=== PATIENT | male | born 1945 | race Caucasian/White ===

== ENCOUNTER 2019-08-28 21:11 | Emergency (ER) | payer OTHER ==
[2019-08-28 21:18] VITALS: BP 139/81; BMI 25.8
--- NOTE | 2019-08-28 22:10 | PDOC ---
History of Present Illness - General Chief Complaint: Cold Symptoms Stated Complaint: COLD SYMPTOMS Time Seen by Provider: 08/28/19 22:04 History Source: Patient Exam Limitations: No Limitations - History of Present Illness Initial Comments: 08/28/19 22:08 PCP: Darrell Romo HPI: 74yo M PMH HTN, HLD, DM, presenting with subjective fevers, headache, malaise for 1 day. Patient took Nyquil last night and Dayquil this morning with some relief. No chest pain, SOB, nausea, vomiting, diarrhea. Good appetite, no sick contacts. No symptoms in the department. Denies being concerned for COVID. Has not seen his PCP for this. No fever with 8+ hours off his antipyretic. All: NKDA Meds: Per chart PMH: HTN, DM, HLD PSH: Appendectomy SHx: Denies toxic habits Past History - Travel Traveled outside of the country in the last 30 days: No Close contact w/someone who was outside of country & ill: No - Past Medical History Allergies/Adverse Reactions: Allergies Allergy/AdvReac Type Severity Reaction Status Date / Time No Known Allergies Allergy Verified 08/28/19 21:18 COPD: No Diabetes: Yes HTN: Yes - Psycho Social/Smoking Cessation Hx Smoking History: Never smoked Review of Systems - Review of Systems Able to Perform ROS?: Yes Is the patient limited [place] proficient: Yes Constitutional: Yes: Fever. No: Chills, Diaphoresis HEENTM: Yes: Other (rhinorrhea ). No: Nose Congestion, Throat Pain Respiratory: Yes: Cough ("occasionally"). No: Orthopnea, Shortness of Breath, Wheezing, Productive cough, Hemoptysis Cardiac (ROS): No: Chest Pain, Edema, Irregular Heart Rate, Lightheadedness, Palpitations, Syncope, Chest Tightness ABD/GI: No: Constipated, Diarrhea, Nausea, Vomiting : No: Burning, Dysuria, Frequency Musculoskeletal: No: Muscle Pain, Muscle Weakness, Neck Pain Integumentary: No: Bruising, Pallor, Pruritus, Rash Neurological: No: Headache, Numbness, Tingling, Weakness Psychiatric: No: Stressors, Change in Appetite Endocrine: No: Increased Thirst, Increased Urine Hematologic/Lymphatic: No: Anemia, Blood Clots, Easy Bleeding All Other Systems: Reviewed and Negative *Physical Exam - Vital Signs Last Vital Signs Temp Pulse Resp BP Pulse Ox 99.2 F 108 H 19 139/81 98 08/28/19 21:12 08/28/19 21:12 08/28/19 21:12 08/28/19 21:12 08/28/19 21:12 - Physical Exam 08/28/19 23:02 Vitals reviewed, AFVSS, Rectal temp 99.6, mild tachycardia to 108 GEN: Well appearing, appears stated age, NAD, comfortable. AAOx3. HEENT: NCAT, EOMI, PERRL. Sclera anicteric, non-injected. No facial asymmetry. Moist mucous membranes. Throat non-erythematous. Normal voice. Trachea midline. CV: RRR, S1/S2, no murmurs / rubs / gallops appreciated. LUNG: CTAB, normal work of breathing. No wheezes, rales, rhonchi. No cough. Speaking full sentences. GI: Soft, NTND, +BS, no guarding, no rebound. No masses. Neg CVAT b/l. EXTREMITIES: 2+ distal pulses. No LE edema. No obvious deformities of all extremities. SKIN: Warm, dry, no rashes appreciated, non-jaundiced. PSYCH: Normal mood and affect. Cooperative and appropriate. NEURO: CN grossly intact. Moving all extremities well. Normal strength and sensation grossly. Medical Decision Making - Medical Decision Making 08/28/19 22:53 74yo M PMH HTN, HLD, DM, presenting with subjective fevers, headache, malaise for 1 day. Did not screen positive for COVID. Afebrile, minimal coughing at home - none while here. Afebrile while off antipyretics for 8+ hours. DDX: most likely URI. - Tylenol 975 mg - Rectal temp 99.6 08/28/19 23:14 Feeling better after Tylenol. Dispo: Home Discharge - Discharge Information Problems reviewed: Yes Clinical Impression/Diagnosis: URI (upper respiratory infection) Qualifiers: URI type: unspecified URI Qualified Code(s): J06.9 - Acute upper respiratory infection, unspecified Condition: Stable Disposition: HOME - Admission No - Follow up/Referral Referrals: ON STAFF,NOT [Primary Care Provider] - - Patient Discharge Instructions Patient Printed Discharge Instructions: DI for Viral Upper Respiratory Infection -- Adult Additional Instructions: You were seen and evaluated at [place] for fevers and malaise. Please continue to take over the counter medications for your symptoms as well as your home medications. Follow up with your primary care doctor in the next 3-5 days if symptoms persist. Return to the ED if you develop any new or concerning symptoms. These may include but are not limited to: shortness of breath or fever that does respond to medication. - Post Discharge Activity
[2019-08-28] MEDS ORDERED: ACETAMINOPHEN 500 MG TABLET (FP) PO ONE (22:53)
[2019-08-28] MEDS ORDERED: ACETAMINOPHEN 325 MG TABLET (FP) ONE (22:55)
[2019-08-28 23:01] VITALS: TEMP 99.6
[2019-08-28 23:25] VITALS: PULSE 88
--- NOTE | 2019-08-28 23:46 | PDOC ---
Attending Attestation - Resident Resident Name: Marcus Jacinto - ED Attending Attestation I have performed the following: I have examined & evaluated the patient, The case was reviewed & discussed with the resident, I agree w/resident's findings & plan, Exceptions are as noted - HPI HPI: 08/28/19 23:40 See resident HPI - Physicial Exam PE: 08/28/19 23:40 Agree with documented exam - Medical Decision Making 08/28/19 23:49 74M pmh DM, HTN, HLD, with 1 day of subjective fever, YEAGER, sinus congestion, no sob, minimal cough Afebrile, no antipyretics prior to presentation tylenol re-eval well appearing, no complaints dc Discharge - Discharge Information Problems reviewed: Yes Clinical Impression/Diagnosis: URI (upper respiratory infection) Qualifiers: URI type: unspecified URI Qualified Code(s): J06.9 - Acute upper respiratory infection, unspecified Condition: Stable Disposition: HOME - Follow up/Referral Referrals: ON STAFF,NOT [Primary Care Provider] - - Patient Discharge Instructions Patient Printed Discharge Instructions: DI for Viral Upper Respiratory Infection -- Adult Additional Instructions: You were seen and evaluated at [place] for fevers and malaise. Please continue to take over the counter medications for your symptoms as well as your home medications. Follow up with your primary care doctor in the next 3-5 days if symptoms persist. Return to the ED if you develop any new or concerning symptoms. These may include but are not limited to: shortness of breath or fever that does respond to medication. - Post Discharge Activity
== END 2019-08-28 23:25 | disposition home or self-care (01) ==
LOC: JER 21:11 → JERFT 21:11 → JER 23:25
DX: J06.9 Acute upper respiratory infection, unspecified (principal); I10 Essential (primary) hypertension; E78.5 Hyperlipidemia, unspecified; E11.9 Type 2 diabetes mellitus without complications
CPT/HCPCS: 99283-25

== ENCOUNTER 2022-09-17 11:07 | Emergency (ER) | payer OTHER ==
[2022-09-17 11:11] VITALS: BMI 25.8
[2022-09-17] MEDS ORDERED: ACETAMINOPHEN 1000 MG/100 ML BAG IVPB ONE (11:36)
[2022-09-17] MEDS ORDERED: SODIUM CHLORIDE 0.9% 500 ML INFUS.BAG IV ONE (11:36)
[2022-09-17] MEDS ORDERED: MAG HYDROX/AL HYDROX/SIMETH 30 ML UNIT-DOSE CUP PO ONE (11:38)
[2022-09-17] MEDS ORDERED: FAMOTIDINE 20 MG/50 ML IVPB 20 MG/50 ML MG IVPB ONE ×2 (11:38→12:34)
[2022-09-17] MEDS ORDERED: ONDANSETRON 4 MG/2 ML VIAL IVPUSH ONE (11:38)
[2022-09-17] MEDS ORDERED: ONDANSETRON 4 MG/2 ML VIAL ONE (11:57)
[2022-09-17] MEDS ORDERED: MAG HYDROX/AL HYDROX/SIMETH 30 ML UNIT-DOSE CUP ONE (11:57)
[2022-09-17] MEDS ORDERED: ACETAMINOPHEN INJECTION 100 ML IVPB ONE (11:57)
[2022-09-17 12:44] LABS: EPI CELLS 3 /uL (0-25.1); HYALINE CASTS 1 /uL (0-3.1); URINE APPEARANCE CLEAR; URINE BACTERIA 7 /uL (0-1359); URINE BILIRUBIN NEGATIVE (NEGATIVE); URINE COLOR YELLOW; URINE GLUCOSE (UA) 3+ (NEGATIVE); URINE KETONE NEGATIVE (NEGATIVE); URINE LEUK ESTERASE NEGATIVE (NEGATIVE); URINE NITRITE NEGATIVE (NEGATIVE); URINE PROTEIN TRACE (NEGATIVE); URINE RBC 20 /uL (0-23.9); URINE UROBILINOGEN 0.2 mg/dL (0.2-1.0); URINE WBC 3 /uL (0-25.8)
[2022-09-17 12:45] LABS: BASO % 0.5 % (0-2.0); EOS % 0.4 % (0-4.5); HEMATOCRIT 45.4 % (35.4-49); LYMPH % 12.4 % (8-40); MCH 25.8 pg (25.7-33.7); MCHC 33.2 g/dl (32.0-35.9); MEAN CELL VOLUME 77.9 fl (80-96); MEAN PLT VOLUME 8.3 fl (7.5-11.1); MONO % 8.7 % (3.8-10.2); PLATELET COUNT 166 10^3/uL (134-434); RBC 5.83 M/mm3 (4.00-5.60); RDW 13.3 % (11.9-15.9); WHITE BLOOD COUNT 11.6 K/mm3 (4.0-10.0)
[2022-09-17 13:11] LABS: ALBUMIN 4.3 g/dl (3.4-5.0)
[2022-09-17 13:12] LABS: BLOOD UREA NITROGEN 27.6 mg/dL (7-18)
[2022-09-17 13:14] LABS: CREATININE 1.4 mg/dL (0.55-1.3)
[2022-09-17 13:16] LABS: BILIRUBIN,TOTAL 0.4 mg/dL (0.2-1); TOT PROT 7.4 g/dl (6.4-8.2)
[2022-09-17 15:23] VITALS: BP 118/66; PULSE 77; RESP 19; TEMP 97.8
== END 2022-09-17 16:09 | disposition home or self-care (01) ==
LOC: JER 11:07
PROC: 3E033GC Introduction of Other Therapeutic Substance into Peripheral Vein, Percutaneous Approach (ICD-10-PCS; principal; 2022-09-17)
PROC: 3E033GC Introduction of Other Therapeutic Substance into Peripheral Vein, Percutaneous Approach (ICD-10-PCS; 2022-09-17)
PROC: 3E033GC Introduction of Other Therapeutic Substance into Peripheral Vein, Percutaneous Approach (ICD-10-PCS; 2022-09-17)
DX: R53.1 Weakness (principal); R10.13 Epigastric pain; R61 Generalized hyperhidrosis; Z20.822 Contact with and (suspected) exposure to COVID-19
CPT/HCPCS: 0241U-QW; 36415; 71045-TC-FY; 80053; 81003; 82550; 83690; 84443; 84484; 85025; 87086; 93005; 93010; 99285-25